=== PATIENT | female | born 1935 | race Caucasian/White ===

== ENCOUNTER 2017-07-30 02:50 | Emergency (ER) | payer MEDICARE ==
[2014-04-02 07:40] VITALS: BMI 29.8
[~2017-07-30 02:50] MED LIST: ASPIRIN325 MG PO; K-DUR20 MEQ PO; LASIX40 MG PO; PRADAXA150 MG PO; TOPROL XL100 MG PO; VYTORIN 10-20 M1 TAB PO
[2017-07-30 03:08] LABS: APPEARANCE HAZY (CLEAR); BACTERIA MANY /hpf (NONE SEEN); BILIRUBIN NEGATIVE (NEGATIVE); COLOR YELLOW (YELLOW); EPITHELIAL CELLS RARE /hpf (0-5); GLUCOSE NEGATIVE (NEGATIVE); KETONE NEGATIVE (NEGATIVE); NITRITE POSITIVE (NEGATIVE); PROTEIN NEGATIVE (NEGATIVE); RED CELLS - URINE 0-5 /hpf (0-5); SPECIFIC GRAVITY 1.015 (1.005-1.020); UROBILINOGEN NORMAL (NORMAL); WHITE CELLS - URINE >50 /hpf (0-5)
[2017-07-30 03:52] LABS: BASOPHILS 0.2 % (0-2); HEMATOCRIT 37.6 % (36.0-48.0); HEMOGLOBIN 12.5 g/dL (12-16); IMMATURE GRANULOCYTES 0.2 % (0-5); LYMPHOCYTES 15.7 % (15-50); MCH 28.4 pg (26.0-34.0); MCHC 33.2 g/dL (31.0-37.0); MCV 85.5 fL (80.0-100.0); MONOCYTES 6.7 % (2-11); NEUTROPHILS 75.2 % (40-80); RDW 13.9 % (11.5-14.5)
[2017-07-30 04:01] LABS: PLATELET COUNT 123 10x3/uL (130-400)
[2017-07-30 04:10] LABS: ALBUMIN 3.8 g/dL (3.4-5.0); ANION GAP 15.6 mmol/L (8-16); BILIRUBIN - TOTAL 0.9 mg/dL (0.2-1.3); CALCIUM 9.5 mg/dL (8.5-10.1); CARBON DIOXIDE 25.3 mmol/L (21.0-32.0); CREATININE - SERUM 0.8 mg/dL (0.6-1.3); POTASSIUM - SERUM 3.9 mmol/L (3.5-5.1); PROTEIN - SERUM 6.3 g/dL (6.4-8.2)
== END 2017-07-30 04:44 | disposition home or self-care (01) ==
LOC: D.ER 02:50
PROVIDERS: Emergency Medicine
DX: N39.0 Urinary tract infection, site not specified (principal)

== ENCOUNTER → 2017-11-29 08:04 | Outpatient (CLI) | payer MEDICARE ==
[2014-04-02 07:40] VITALS: BMI 29.8
== END | disposition home or self-care (01) ==
LOC: D.NM 08:04
DX: K80.20 Calculus of gallbladder without cholecystitis without obstruction (principal)

== ENCOUNTER → 2017-11-30 12:48 | Outpatient (CLI) | payer MEDICARE ==
[2014-04-02 07:40] VITALS: BMI 29.8
== END | disposition home or self-care (01) ==
LOC: D.US 12:48
DX: R60.9 Edema, unspecified (principal); M79.605 Pain in left leg; M79.604 Pain in right leg